=== PATIENT | male | born 1990 | race American Indian/Alaskan Native ===

== ENCOUNTER 2021-03-01 13:00 | Emergency (ER) | payer MEDICAID ==
[2021-03-01 13:07] VITALS: BP 157/94
--- NOTE | 2021-03-01 14:56 | Emergency Department Report ---
ED General Adult HPI - General Chief complaint: Medical Clearance Stated complaint: POS PREG TEST/TUBES ARE TIED Time Seen by Provider: 03/01/21 13:50 Source: patient Mode of arrival: Ambulatory Limitations: No Limitations - History of Present Illness Initial comments: The patient was evaluated in the emergency department for symptoms described in the history of present illness. He/she was evaluated in the context of the global COVID-19 pandemic, which necessitated consideration that the patient might be at risk for infection with the virus that causes COVID-19. Institutional protocols and algorithms that pertain to the evaluation of patients at risk for COVID-19 are in a state of rapid change based on information released by regulatory bodies including the CDC and federal and state organizations. These policies and algorithms were followed during the patient's care in the emergency department. Please note that these policies, procedures and recommendations changed on a rapid basis. 30-year-old morbid obese -Turkish female presents to the emergency room concern for possible . Patient is 2 para 1. Patient states that she had 2 home test that were positive. She does admit to nausea no vomiting no dysuria no pelvic pain no abdominal pain. She has a past medical history of hypertension through her pregnancies. Patient currently has a 5-year-old and a [id number]. Not vaccinated. She states that she had a tubal ligation and is concerned that she may be . Severity scale (0 -10): 0 Associated Symptoms: denies other symptoms Treatments Prior to Arrival: none - Related Data Allergies Allergy/AdvReac Type Severity Reaction Status Date / Time No Known Allergies Allergy Unverified 03/01/21 13:04 ED Review of Systems ROS: Stated complaint: POS PREG TEST/TUBES ARE TIED Other details as noted in HPI Comment: All other systems reviewed and negative ED Past Medical Hx - Past Medical History Previous Medical History?: No - Surgical History Additional Surgical History: FEMUR ED Physical Exam - General Limitations: No Limitations General appearance: alert - Head Head exam: Present: atraumatic, normocephalic - Eye Eye exam: Present: normal appearance - ENT ENT exam: Present: normal external ear exam - Neck Neck exam: Present: normal inspection, full ROM - Respiratory Respiratory exam: Absent: respiratory distress, accessory muscle use - Cardiovascular Cardiovascular Exam: Present: tachycardia - Extremities Exam Extremities exam: Present: normal inspection, full ROM - Back Exam Back exam: Present: normal inspection, full ROM - Neurological Exam Neurological exam: Present: alert, oriented X3, normal gait - Psychiatric Psychiatric exam: Present: normal affect, normal mood - Skin Skin exam: Present: warm, dry, intact, normal color. Absent: rash ED Course Vital Signs 03/01/21 03/01/21 13:05 13:06 Temperature 99.9 F H Pulse Rate 117 H Respiratory 20 Rate Blood Pressure 157/94 O2 Sat by Pulse 100 Oximetry ED Medical Decision Making - Lab Data Laboratory Tests 03/01/21 14:28 HCG, Quant < 2 H - Medical Decision Making 30-year-old morbid obese -Turkish female presents to the emergency room concern for possible . Patient is 2 para 1. Patient states that she had 2 home test that were positive. She does admit to nausea no vomiting no dysuria no pelvic pain no abdominal pain. She has a past medical history of hypertension through her pregnancies. Patient currently has a 5-year-old and a [id number]. Not vaccinated. She states that she had a tubal ligation and is concerned that she may be . Serum hCG has been ordered. Critical care attestation.: If time is entered above; I have spent that time in minutes in the direct care of this critically ill patient, excluding procedure time. ED Disposition Clinical Impression: Physically well but worried Disposition: 01 HOME / SELF CARE / HOMELESS Is pt being admited?: No Does the pt Need Aspirin: No Condition: Stable Additional Instructions: Serum/blood test negative Referrals: Your, primary care provider [Other] - 3-5 Days Time of Disposition: 15:46
== END 2021-03-01 16:20 | disposition home or self-care (01) ==
LOC: ED 13:00
DX: Z00.00 Encounter for general adult medical examination without abnormal findings (principal)
CPT/HCPCS: 36415; 84702; 99283

== ENCOUNTER 2021-08-06 22:36 | Emergency (ER) | payer MEDICAID | END 2021-08-06 23:40 | disposition left against medical advice (07) | LOC: ED 22:36 | DX: Z04.1 Encounter for examination and observation following transport accident (principal); Z53.21 Procedure and treatment not carried out due to patient leaving prior to being seen by health care provider; V89.2XXA Person injured in unspecified motor-vehicle accident, traffic, initial encounter; Y93.89 Activity, other specified; Y92.89 Other specified places as the place of occurrence of the external cause; Y99.8 Other external cause status ==

== ENCOUNTER 2021-09-10 22:38 | Emergency (ER) | payer MEDICAID ==
[2021-09-11 00:27] VITALS: BP 151/100
== END 2021-09-11 02:00 | disposition left against medical advice (07) ==
LOC: ED 22:38
DX: B34.9 Viral infection, unspecified (principal); Z53.21 Procedure and treatment not carried out due to patient leaving prior to being seen by health care provider